=== PATIENT | male | born 1970 ===

== ENCOUNTER → 2020-08-04 | Outpatient (CLI) | payer BC | LOC: GMA CAST 12:12 | PROVIDERS: ATTEND Family Medicine Sports Medicine | DX: Z20.2 Contact with and (suspected) exposure to infections with a predominantly sexual mode of transmission (principal); R53.83 Other fatigue; Z79.899 Other long term (current) drug therapy; R73.9 Hyperglycemia, unspecified; Z13.220 Encounter for screening for lipoid disorders ==